=== PATIENT | female | born 1970 | race Caucasian/White ===

== ENCOUNTER → 2017-04-25 | Outpatient (CLI) | payer BC ==
--- NOTE | 2017-04-25 15:40 | RAD ---
PA and lateral chest x-ray without comparison for cough, 6 weeks in duration. Findings: The lungs are clear. The cardiomediastinum is grossly unremarkable. No significant soft tissue or osseous abnormality. Impression: 1. No acute cardiopulmonary abnormality.
== END | disposition home or self-care (01) ==
LOC: RAD 13:23
PROVIDERS: ATTEND Internal Medicine Critical Care Medicine
DX: R05 Cough (principal)
CPT/HCPCS: 71020

== ENCOUNTER → 2018-06-17 | Outpatient (CLI) | payer BC, OTHER ==
[~2018-06-17] MED LIST: ALBU2.5V8 INH; FLUT9.9S NS; GADOBUTROL 7.5 MMOL/7.5 ML VIAL IV ONE; HYDR25CA75 PO; IPRA3AMP29 NEB; MOME13HF IH; MONT10TA9 PO
--- NOTE | 2018-06-17 17:46 | KCIC ---
MRI study of the pelvis with and without contrast Clinical indications: Excessive frequent menses for 6 months. Abnormal right ovary seen on recent sonogram dated May 30, 2018. COMPARISON: Sonogram dated May 30, 2018. TECHNIQUE: Pre and postcontrast enhanced MRI sequences of the pelvis were performed. A total of 12 cc of Gadavist was given intravenously. FINDINGS: Nabothian cysts of the cervix are seen. The uterine junctional zone is mildly and diffusely thickened measuring up to 12 mm. In addition, 2 small cystic areas are seen within the anterior junctional zone. Findings may be seen with adenomyosis. The endometrial canal measures 11 mm in thickness. No uterine mass or fibroid is seen otherwise. Uterus is retroflexed. No free fluid is seen within the cul-de-sac. The vaginal vault and vulva appear normal. Urinary bladder is unremarkable. There is a 1.3 cm cyst of the right ovary with peripheral rim type enhancement which may be seen with a corpus luteum cyst. The left ovary is normal. No adnexal mass or solid mass of the adnexa is seen. No enlarged pelvic lymphadenopathy is evident. IMPRESSION: Normal appearance of both ovaries. There is a 1.3 cm enhancing corpus luteum cyst of the right ovary. Retroflexed uterus. The endometrial canal measures 11 mm in thickness. This may be normal for a premenopausal patient but abnormal for a postmenopausal patient. Correlation with clinical history is needed. Adenomyosis. Electronically signed by: Jose Peguero MD (06/17/2018 5:43 PM) [id number]
== END | disposition home or self-care (01) ==
LOC: KCIC MRI 14:44
PROVIDERS: ATTEND Nurse Practitioner Family
DX: N83.11 Corpus luteum cyst of right ovary (principal); N80.0 Endometriosis of uterus; N88.8 Other specified noninflammatory disorders of cervix uteri
CPT/HCPCS: 72197